=== PATIENT | female | born 1980 | race Caucasian/White ===

== ENCOUNTER 2017-12-31 18:33 | Emergency (ER) | payer MEDICAID ==
[~2017-12-31] VITALS: Ht 177.8 cm; Wt 84.2 kg
[~2017-12-31 18:33] MED LIST: GABA300C PO
[2017-12-31 19:09] LABS: CLARITY,URINE CLEAR (Clear); COLOR,URINE YELLOW (Yellow); GLUCOSE, URINE NEGATIVE (Neg); KETONES,URINE NEGATIVE (Neg); LEUKOCYTE ESTERASE ,URINE NEGATIVE (Neg); NITRITES, URINE NEGATIVE (Neg); OCCULT BLOOD,URINE NEGATIVE (Neg); PROTEIN,URINE NEGATIVE (Neg); UROBILINOGEN,URINE 0.2 E.U/dL (0.2-1.0)
[2017-12-31 19:10] LABS: UA COLLECTION TYPE CLN CATCH MIDSTREAM
[2017-12-31 19:34] LABS: URINE HCG NEGATIVE (NEG)
[2017-12-31 21:25] VITALS: BP 110/75
== END 2017-12-31 21:38 | disposition home or self-care (01) ==
LOC: ER 18:34
DX: R10.9 Unspecified abdominal pain (principal); R31.9 Hematuria, unspecified; L29.9 Pruritus, unspecified; Z79.899 Other long term (current) drug therapy
CPT/HCPCS: 74176; 81003; 81025; 99285

== ENCOUNTER 2020-04-03 13:50 | Outpatient (CLI) | payer MEDICAID ==
[~2020-04-03] VITALS: Ht 177.8 cm; Wt 83.9 kg
[2020-04-03] MEDS ORDERED: ALB0.5UD IH (14:55)
[2020-04-03] MEDS ORDERED: ACET-2971 PO (14:55)
[2020-04-03 15:34] LABS: BASOPHILS # (AUTO) 0.1 X10'3 (0-0.2); BASOPHILS % (AUTO) 0.7 % (0-1); EOSINOPHILS # (AUTO) 0.1 X10'3 (0-0.9); EOSINOPHILS % (AUTO) 1.6 % (0-6); LYMPHOCYTES # (AUTO) 1.9 X10'3 (1.1-4.8); LYMPHOCYTES % (AUTO) 21.6 % (21-51); MEAN CORPUSCULAR HEMOGLOBIN 27.8 PG (27.0-31.0); MEAN CORPUSCULAR HGB CONC 34.4 g/dL (33.0-36.5); MEAN CORPUSCULAR VOLUME 80.9 FL (78-98); MEAN PLATELET VOLUME 7.6 FL (7.4-10.4); MONOCYTES # (AUTO) 0.5 X10'3 (0-0.9); MONOCYTES % (AUTO) 5.4 % (2-12); NEUTROPHILS # (AUTO) 6.2 X10'3 (1.8-7.7); NEUTROPHILS % (AUTO) 70.7 % (42-75); PRE OP HEMATOCRIT 41.4 % (35.0-45.0); PRE OP HEMOGLOBIN 14.2 g/dL (12.0-16.0); PRE OP PLATELET COUNT 301 X10'3 (140-440); RED BLOOD COUNT 5.13 X10'6 (4.20-5.60); RED CELL DISTRIBUTION WIDTH 13.7 % (11.5-14.5)
[2020-04-03 15:47] LABS: PRE OP PROTIME 10.3 SECONDS (9.0-12.0)
[2020-04-03 15:49] LABS: ALBUMIN 4.1 G/DL (3.4-5.0); ALBUMIN/GLOBULIN RATIO 1.3 (1.1-1.5); ALKALINE PHOSPHATASE 64 IU/L (46-116); BLOOD UREA NITROGEN 14 MG/DL (7-18); BUN/CREATININE RATIO 16.5 (6.6-38.0); CALCIUM 8.8 MG/DL (8.5-10.1); CHLORIDE 105 MMOL/L (99-107); CREATININE 0.85 MG/DL (0.40-0.90); PRE OP ALT 8 U/L (30-65); PRE OP ANION GAP 8 (8-16); PRE OP AST 12 U/L (10-37); PRE OP BILIRUB, TOTAL 0.4 MG/DL (0.0-1.0); PRE OP GLUCOSE 95 MG/DL (70-104); PRE OP POTASSIUM 3.8 MMOL/L (3.4-5.1); PRE OP SODIUM 140 MMOL/L (135-145); TOTAL CARBON DIOXIDE 26.8 MMOL/L (24-32); TOTAL PROTEIN 7.2 G/DL (6.4-8.2); eGFR 74 ML/MIN
[2020-04-03 15:50] LABS: CLARITY,URINE SLIGHTLY CLOUDY (Clear); COLOR,URINE STRAW (Yellow); GLUCOSE, URINE NEGATIVE (Neg); KETONES,URINE NEGATIVE (Neg); NITRITES, URINE NEGATIVE (Neg); OCCULT BLOOD,URINE NEGATIVE (Neg); PROTEIN,URINE NEGATIVE (Neg); UA COLLECTION TYPE CLN CATCH MIDSTREAM; UROBILINOGEN,URINE 0.2 E.U/dL (0.2-1.0)
[2020-04-03 15:54] LABS: LEUKOCYTE ESTERASE ,URINE NEGATIVE (Neg)
[2020-04-03 15:56] LABS: SQUAMOUS EPITHELIAL CELL,UR MANY /LPF (FEW)
[2020-04-03 15:57] LABS: MUCUS STRANDS NONE SEEN /LPF (Neg); WBC,URINE 0-4 /HPF (0-4)
[2020-04-03 15:58] LABS: BACTERIA,URINE 3+ /HPF (Neg); RBC,URINE 0-2 /HPF (0-2)
[2020-04-07] MEDS ORDERED: ALBU8HFA PO (11:37)
[2020-04-10] MEDS ORDERED: ringers solution, lacted 1,000 ML IV SCH (05:00)
[2020-04-10] MEDS ORDERED: ceFOXitin sod/dextrose 2g/50ml 50 ML IV ONE (05:30)
[2020-04-10] MEDS ORDERED: famotidine 20mg tablet PO ONE (05:30)
[2020-04-10] MEDS ORDERED: albuterol 2.5 MG/3 ML nebule NEB ONE (05:30)
== END 2020-04-03 23:59 | disposition home or self-care (01) ==
LOC: PRE-OP 13:50 → EDSTATUS 04-10 09:45
PROVIDERS: ATTEND Obstetrics & Gynecology
DX: Z01.812 Encounter for preprocedural laboratory examination (principal); N93.9 Abnormal uterine and vaginal bleeding, unspecified; N85.2 Hypertrophy of uterus; Z20.828 Contact with and (suspected) exposure to other viral communicable diseases
CPT/HCPCS: 36415; 80053; 81001; 85025; 85610; 85730; 87635; 93005; J0694; J7120

== ENCOUNTER 2020-05-08 07:39 | Day surgery (SDC) | payer MEDICAID ==
[2020-05-03 16:08] LABS: HCG SERUM QL NEGATIVE
[2020-05-03 16:09] LABS: GLUCOSE, URINE NEGATIVE (Neg); KETONES,URINE NEGATIVE (Neg); LEUKOCYTE ESTERASE ,URINE TRACE (Neg); NITRITES, URINE NEGATIVE (Neg); OCCULT BLOOD,URINE LARGE (Neg); PROTEIN,URINE NEGATIVE (Neg); UROBILINOGEN,URINE 0.2 E.U/dL (0.2-1.0)
[2020-05-03 16:10] LABS: PRE OP INR 0.9 INR; PRE OP PROTIME 9.8 SECONDS (9.0-12.0)
[2020-05-03 16:13] LABS: CLARITY,URINE CLOUDY (Clear); COLOR,URINE PINK (Yellow); UA COLLECTION TYPE CLN CATCH MIDSTREAM
[2020-05-03 16:13] LABS: ALBUMIN 3.9 G/DL (3.4-5.0); ALBUMIN/GLOBULIN RATIO 1.3 (1.1-1.5); ALKALINE PHOSPHATASE 80 IU/L (46-116); BLOOD UREA NITROGEN 12 MG/DL (7-18); CALCIUM 8.8 MG/DL (8.5-10.1); CHLORIDE 106 MMOL/L (99-107); CREATININE 0.92 MG/DL (0.40-0.90); PRE OP ALT 18 U/L (30-65); PRE OP ANION GAP 4 (8-16); PRE OP AST 11 U/L (10-37); PRE OP BILIRUB, TOTAL 0.3 MG/DL (0.0-1.0); PRE OP GLUCOSE 84 MG/DL (70-104); PRE OP POTASSIUM 3.9 MMOL/L (3.4-5.1); PRE OP SODIUM 140 MMOL/L (135-145); TOTAL PROTEIN 6.9 G/DL (6.4-8.2); eGFR 68 ML/MIN
[2020-05-03 16:14] LABS: BASOPHILS # (AUTO) 0.1 X10'3 (0-0.2); EOSINOPHILS # (AUTO) 0.1 X10'3 (0-0.9); EOSINOPHILS % (AUTO) 1.6 % (0-6); LYMPHOCYTES # (AUTO) 1.8 X10'3 (1.1-4.8); LYMPHOCYTES % (AUTO) 19.9 % (21-51); MEAN CORPUSCULAR HEMOGLOBIN 25.9 PG (27.0-31.0); MEAN CORPUSCULAR VOLUME 78.3 FL (78-98); MEAN PLATELET VOLUME 7.8 FL (7.4-10.4); MONOCYTES # (AUTO) 0.5 X10'3 (0-0.9); NEUTROPHILS # (AUTO) 6.4 X10'3 (1.8-7.7); NEUTROPHILS % (AUTO) 71.5 % (42-75); PRE OP HEMATOCRIT 42.1 % (35.0-45.0); PRE OP HEMOGLOBIN 13.9 g/dL (12.0-16.0); PRE OP PLATELET COUNT 286 X10'3 (140-440); RED BLOOD COUNT 5.38 X10'6 (4.20-5.60); RED CELL DISTRIBUTION WIDTH 13.2 % (11.5-14.5)
[2020-05-03 16:24] LABS: BACTERIA,URINE FEW /HPF (Neg); RBC,URINE 50-100 /HPF (0-2); SQUAMOUS EPITHELIAL CELL,UR FEW /LPF (FEW); WBC CLUMPS,URINE FEW /HPF (NEGATIVE); WBC,URINE 0-4 /HPF (0-4)
[~2020-05-08] VITALS: Ht 177.8 cm; Wt 85.9 kg
[2020-05-08] VITALS (15 sets, daily range): BP systolic 102–133; BP diastolic 65–87
[~2020-05-08 07:39] MED LIST changes: +ACET-2971 PO; +ALBU8HFA PO; -GABA300C PO; +ceFOXitin 2GM-NS 100mL ADDvant 100 ML IV ONE; +famotidine 20mg tablet PO ONE; +ringers solution, lacted 1,000 ML IV SCH; +scopolamine 1.5mg patch.TD72 TD ONE
[2020-05-08] MEDS ORDERED: BUPIVAcaine/PF 2.5 mg/ml (0.25%) 30ml vial ONE (08:28)
[2020-05-08] MEDS ORDERED: tranexamic acid 100mg/ml inj. ONE (08:29)
[2020-05-08] MEDS ORDERED: sevoflurane 250ml liquid IH ONE (08:53)
[2020-05-08] MEDS ORDERED: fentaNYL /PF 50mcg/ml 5ml ampule ONE (09:04)
[2020-05-08] MEDS ORDERED: midazolam 2 mg/2 ml injection ONE (09:04)
[2020-05-08] MEDS ORDERED: rocuronium 10mg/ml inj IV ONE (09:06)
[2020-05-08] MEDS ORDERED: propofol inj 20 ML IV ONE (09:06)
[2020-05-08] MEDS ORDERED: dexamethasone sod phosphate 4mg/ml inj. ONE (09:20)
[2020-05-08] MEDS ORDERED: ondansetron/PF 4mg/2ml inj ONE (11:02)
[2020-05-08] MEDS ORDERED: morphine 2 MG/ML inj. syringe IV PRN (11:05)
[2020-05-08] MEDS ORDERED: proCHLORperazine 10 MG/2 ml inj IV PRN (11:05)
[2020-05-08] MEDS ORDERED: morphine 4 MG/ML inj SYRINge IV PRN (11:05)
[2020-05-08] MEDS ORDERED: ondansetron/PF 4mg/2ml inj IV PRN (11:05)
[2020-05-08] MEDS ORDERED: meperidine/PF 25mg/ml syringe IV PRN ×2 (11:05)
[2020-05-08] MEDS ORDERED: ringers solution, lacted 1,000 ML IV SCH (11:05)
[2020-05-08] MEDS ORDERED: sugammadex 200mg/2ml injection IV ONE (11:06)
--- NOTE | 2020-05-08 11:24 | NUR ---
Received from OR via [facility], accompanied by Anesthesiologist DR WEBB and report given by Anesthesiologist. PT DROWSY, DENIES PAIN, ABDOMEN W/4 LAP SITES W/BANDAIDS CDI, ZENA PAD IN PLACE W/SCANT AMT OF S/S DRAINAGE. Addendum: 05/08/20 at 1148 by Holly Hamilton RN Amended: Links added.
[2020-05-08] MEDS: meperidine/PF 25mg/ml syringe IV PRN ×2 (11:52→12:00)
[2020-05-08] MEDS ORDERED: HYDROcodone/acetaminophen 10/325mg tab PO ONE (13:05)
--- NOTE | 2020-05-08 14:14 | NUR ---
PT UP, ABLE TO AMBULATE SAFELY, PT VOIDED, TOLERATES PO INTAKE, PAIN UNDER CONTROL. D/C INSTRUCTIONS GIVEN AND GONE OVER W/PT WHO VERBALIZED UNDERSTANDING. PT D/CD TO HOME VIA W/C TO PRIVATE VEHICLE W/O INCIDENT. Addendum: 05/08/20 at 1436 by Holly Hamilton RN Amended: Links added.
== END 2020-05-08 14:14 | disposition home or self-care (01) ==
LOC: PAS 07:39
PROVIDERS: ATTEND Obstetrics & Gynecology
DX: N93.9 Abnormal uterine and vaginal bleeding, unspecified (principal); N83.02 Follicular cyst of left ovary; N83.8 Other noninflammatory disorders of ovary, fallopian tube and broad ligament; D25.0 Submucous leiomyoma of uterus; N87.9 Dysplasia of cervix uteri, unspecified; R10.2 Pelvic and perineal pain; N94.6 Dysmenorrhea, unspecified; J45.909 Unspecified asthma, uncomplicated; G47.30 Sleep apnea, unspecified; M19.90 Unspecified osteoarthritis, unspecified site; F32.9 Major depressive disorder, single episode, unspecified; Z87.891 Personal history of nicotine dependence; Z98.890 Other specified postprocedural states; Z79.899 Other long term (current) drug therapy
CPT/HCPCS: 36415; 58571; 80053; 81001; 82948; 84703; 85025; 85610; 85730; 87088; 87635; C1758; C9399; J0694; J1100; J2175; J2250; J2405; J2704; J3010; J3490; J7120; S2900; A4618; A7000

== ENCOUNTER 2020-05-11 22:18 | Emergency (ER) | payer MEDICAID ==
[~2020-05-11] VITALS: Ht 177.8 cm; Wt 85.5 kg
[~2020-05-11 22:18] MED LIST changes: -ceFOXitin 2GM-NS 100mL ADDvant 100 ML IV ONE; -famotidine 20mg tablet PO ONE; -ringers solution, lacted 1,000 ML IV SCH; -scopolamine 1.5mg patch.TD72 TD ONE
[2020-05-11] MEDS ORDERED: ondansetron/PF 4mg/2ml inj IV ONE (23:00)
[2020-05-11] MEDS ORDERED: ONDA4TAB6 PO (23:47)
[2020-05-11] MEDS ORDERED: POLY17PO10 PO (23:47)
[2020-05-11 23:58] VITALS: BP 106/77
== END 2020-05-11 23:59 | disposition home or self-care (01) ==
LOC: ER 22:18
DX: K59.00 Constipation, unspecified (principal); R10.84 Generalized abdominal pain; R50.9 Fever, unspecified; R11.0 Nausea; R42 Dizziness and giddiness; F31.9 Bipolar disorder, unspecified; Z90.710 Acquired absence of both cervix and uterus; Z98.890 Other specified postprocedural states; Z79.899 Other long term (current) drug therapy
CPT/HCPCS: 74176; 96374; 99284; J2405

== ENCOUNTER 2024-08-25 09:49 | Emergency (ER) | payer BC, MEDICAID ==
[~2024-08-25] VITALS: Ht 177.8 cm; Wt 93.8 kg
[~2024-08-25 09:49] MED LIST changes: +ONDA4TAB6 PO
[2024-08-25 10:09] VITALS: BP 131/84; PULSE 93; TEMP 97.8; O2SAT 96
[2024-08-25] MEDS: ketorolac trometh 15mg/ml vial 15 MG/ML ML IM ONE (11:33)
[2024-08-25 12:07] VITALS: RESP 15
== END 2024-08-25 12:30 | disposition home or self-care (01) ==
LOC: ER 09:50
DX: G43.909 Migraine, unspecified, not intractable, without status migrainosus (principal); F31.9 Bipolar disorder, unspecified; G62.9 Polyneuropathy, unspecified; Z90.710 Acquired absence of both cervix and uterus; Z98.890 Other specified postprocedural states
CPT/HCPCS: 70450; 96372; 99285; J1885